=== PATIENT | female | born 1960 | race African-American/Black ===

== ENCOUNTER 2018-10-17 12:42 | Emergency (ER) | payer MEDICAID, OTHER ==
[~2018-10-17] VITALS: Ht 162.6 cm; Wt 57.0 kg
[2018-10-17] MEDS ORDERED: KETOROLAC 60MG/2ML VIAL IM ONE (18:45)
[2018-10-17 19:30] VITALS: BP 119/69
== END 2018-10-17 20:28 | disposition home or self-care (01) ==
LOC: ER 12:42
DX: M54.30 Sciatica, unspecified side (principal); M54.9 Dorsalgia, unspecified; E03.9 Hypothyroidism, unspecified
CPT/HCPCS: 72100; 96372; 99283; J1885

== ENCOUNTER 2025-01-25 09:25 | Emergency (ER) | payer OTHER ==
[~2025-01-25] VITALS: Ht 160 cm; Wt 59.0 kg
[2025-01-25 09:45] VITALS: O2SAT 100
[2025-01-25 10:11] LABS: BASOPHILS % 0.5 % (0.0-2.0); EOSINOPHILS % 1.3 % (0.0-5.0); HEMATOCRIT. 41.0 % (36.0-48.0); HEMOGLOBIN. 14.0 g/dL (12.0-16.0); LYMPHOCYTES % 31.4 % (20.0-50.0); MEAN PLATELET VOLUME 7.8 fl (7.4-10.4); MONOCYTES % 10.2 % (2.0-8.0); NEUTROPHILS % 56.6 % (40.0-76.0); PLATELET 213 x1000/uL (130-400); RED BLOOD CELL COUNT 4.40 mill/uL (4.2-5.4); RED CELL DISTRIBUTION WIDTH 13.0 % (11.6-14.6)
[2025-01-25 10:25] LABS: CREATININE 0.7 mg/dL (0.6-1.0)
[2025-01-25 10:26] LABS: UREA NITROGEN BLOOD 8 mg/dL (9-23)
[2025-01-25] MEDS: IBUPROFEN 600MG TABLET PO ONE (10:52)
[2025-01-25] MEDS: METHOCARBAMOL 500MG TABLET PO ONE (10:52)
[2025-01-25] MEDS ORDERED: METH-653 MT (11:28)
[2025-01-25] MEDS ORDERED: LIDO700A30 TP (11:28)
[2025-01-25] MEDS ORDERED: IBUP-1455 MT (11:28)
[2025-01-25 11:45] VITALS: BP 148/89; PULSE 99; RESP 16; TEMP 36.9; O2SAT 100
== END 2025-01-25 11:46 | disposition home or self-care (01) ==
LOC: ER 09:49
DX: S33.5XXA Sprain of ligaments of lumbar spine, initial encounter (principal); E03.9 Hypothyroidism, unspecified; Z90.89 Acquired absence of other organs; Z79.899 Other long term (current) drug therapy; X50.0XXA Overexertion from strenuous movement or load, initial encounter; Y93.89 Activity, other specified; Y92.89 Other specified places as the place of occurrence of the external cause; Y99.8 Other external cause status
CPT/HCPCS: 36415; 72100; 80048; 85025; 93005; 99285